=== PATIENT | female | born 1930 | race Caucasian/White ===

== ENCOUNTER → 2016-06-01 | Outpatient (CLI) | payer MEDICARE, OTHER ==
--- NOTE | 2016-06-01 13:02 | XR ---
EXAMINATION TYPE: XR chest 2V DATE OF EXAM: 06/01/2016 12:31 PM COMPARISON: 11/12/2010 INDICATION: Cough x2 weeks TECHNIQUE: Frontal and lateral views of the chest are obtained. FINDINGS: The heart size is normal. The pulmonary vasculature is normal. The lungs are clear. IMPRESSION: 1. No acute pulmonary process.
== END | disposition home or self-care (01) ==
LOC: RADXRMAIN 12:09
PROVIDERS: ATTEND Internal Medicine
DX: R05 Cough (principal)
CPT/HCPCS: 71020

== ENCOUNTER 2016-08-27 07:37 | Day surgery (SDC) | payer MEDICARE, OTHER ==
[2016-08-24 11:23] VITALS: BMI 28.6
[~2016-08-27 07:37] MED LIST: LACTATED RINGERS 1,000 ML IV SCH
[2016-08-27] MEDS ORDERED: LIDOCAINE 1% 20 ML VIAL (10MG/ML) FOR IV START INTRADERMA ONE (07:58)
[2016-08-27] MEDS ORDERED: LACTATED RINGERS 1,000 ML IV ONE (07:58)
[2016-08-27 08:14] VITALS: TEMP 98
[2016-08-27 08:14] LABS: Glucose,Whole Blood 121 mg/dL (75-99)
[2016-08-27] MEDS ORDERED: LIDOCAINE 1% INJ 10MG/ML (20 ML MDV) ONE (08:23)
[2016-08-27] MEDS ORDERED: PROPOFOL 10 MG/ML 20 ML VIAL IV ONE (08:23)
--- NOTE | 2016-08-27 08:35 | P.PCN ---
Date of Procedure: 08/27/16 Procedure(s) Performed: BRIEF HISTORY: Patient is a 86-year-old, pleasant, white female, scheduled for an upper endoscopy as a part of evaluation of persistent epigastric pain for the last 1 year duration. She does complain of some nausea but no emesis. She was treated with omeprazole 20 mg daily for several months with no relief in her symptoms. she denies any recent NSAID use. No prior history of peptic ulcer disease PROCEDURE PERFORMED: Esophagogastroduodenoscopy with biopsy. PREOPERATIVE DIAGNOSIS: Chronic epigastric pain. IV sedation per anesthesia. PROCEDURE: After informed consent was obtained, the patient was brought into the endoscopy unit. IV sedation was administered by Anesthesia under continuous monitoring. Initially the Olympus GIF-140 video endoscope was inserted into the mouth. Esophagus intubated without any difficulty. It was gradually advanced into the stomach and duodenum and carefully examined. The bulb and the second part of the duodenum appeared normal. Biopsies were done from this area to rule out celiac disease. The scope at this time was withdrawn to the stomach, adequately insufflated with air, and upon careful examination, mucosa of the antrum, had mild gastritis and biopsies were done from this area. The body, cardia and the fundus appeared normal. The scope was then withdrawn into the esophagus. Small sliding Hiatal hernia noted. The GE junction was located at 39 cm from the incisors. The esophagus appeared normal. Biopsies were also done from the distal esophagus. There were no erosions or ulcerations seen and the patient tolerated the procedure well. IMPRESSION: 1. Mild antral gastritis. 2. Small sliding-type hiatal hernia but no evidence of esophagitis or Leo' s esophagus RECOMMENDATIONS: The findings of this examination were discussed with the patient as well as her family. She was advised to follow with the biopsy results.
[2016-08-27 09:08] VITALS: BP 142/72; PULSE 70; RESP 18
== END 2016-08-27 09:33 | disposition home or self-care (01) ==
LOC: ORWHC2ENDO 07:37
PROVIDERS: ATTEND Internal Medicine Gastroenterology
DX: K21.0 Gastro-esophageal reflux disease with esophagitis (principal); K29.50 Unspecified chronic gastritis without bleeding; G89.29 Other chronic pain; K44.9 Diaphragmatic hernia without obstruction or gangrene; I10 Essential (primary) hypertension; E11.9 Type 2 diabetes mellitus without complications; J45.909 Unspecified asthma, uncomplicated; Z79.82 Long term (current) use of aspirin; Z79.899 Other long term (current) drug therapy; Z79.891 Long term (current) use of opiate analgesic; Z88.5 Allergy status to narcotic agent; Z79.84 Long term (current) use of oral hypoglycemic drugs; Z79.51 Long term (current) use of inhaled steroids
CPT/HCPCS: 88305; 88342; 43239; J2001; J2704

== ENCOUNTER → 2016-10-26 | Outpatient (CLI) | payer MEDICARE ==
--- NOTE | 2016-10-26 19:06 | XR ---
EXAMINATION TYPE: XR chest 2V DATE OF EXAM: 10/26/2016 COMPARISON: 06/01/2016 HISTORY: Cough and chest tightness TECHNIQUE: Frontal and lateral views of the chest are obtained. FINDINGS: There is mildly added peribronchial opacity in the left lower lobe, consistent with develo ping bronchopneumonia. There is no pleural effusion, or pneumothorax seen. The cardiac silhouette size is within normal mancuso its. The osseous structures are intact. IMPRESSION: FINDINGS SUGGEST LEFT LOWER LOBE BRONCHOPNEUMONIA.
== END | disposition home or self-care (01) ==
LOC: RADXRMAIN 15:28
PROVIDERS: ATTEND Internal Medicine
DX: R05 Cough (principal); R06.02 Shortness of breath
CPT/HCPCS: 71020

== ENCOUNTER → 2016-11-01 | Outpatient (CLI) | payer MEDICARE ==
--- NOTE | 2016-11-01 14:57 | BD ---
EXAMINATION TYPE: MG DEXA axial skeleton. DATE OF EXAM: 11/01/2016 COMPARISON: NONE CLINICAL HISTORY: M89.9 DISORDER OF BONE Height: 64.5 Weight: 191 FRAX RISK QUESTIONS: Alcohol (3 or more units per day): NO Family History (Parent hip fracture): YES Glucocorticoids (More than 3mos): YES (Ex: prednisone, prednisolone, methylprednisolone, dexamethasone, and hydrocortisone). History of Fracture in Adulthood: NO Secondary Osteoporosis: NO 1. Type 1 Diabetes: NO 2. Hyperthyroidism: NO 3. Menopause before 45: NO 4. Malnutrition: NO 5. Chronic liver disease: NO Rheumatoid Arthritis: NO Current Tobacco Use: NO RISK FACTORS HISTORY OF: Family History of Osteoporosis: YES, SISTER AND MOTHER...SISTER WITH BROKEN HIP Smoke tobacco: NO Drink Alcohol: NONE Active: NOT REALLY, USES CANE Diet low in dairy products/other sources of calcium: NO Postmenopausal woman: YES, IN HER 50'S Lost more than 2 inches in height since high school: YES Adrenal Insufficiency: NO MEDICATIONS: Prednisone or other steroids: PREDNISONE, ASTHMA INHALERS, AND COPD How Long: MANY YRS Thyroid Medications: YES, SYNTHROID How Long: OVER 10 YRS Additional Medications: BP MEDS, XANAX, DIABETIC MEDS, STATIN FOR CHOLESTEROL, VIT D Additional History: ASTHMA, COPD, DIABETIC, RT TOTAL KNEE, OSTEOARTHRITIS EXAM MEASUREMENTS: Bone mineral densitometry was performed using the [employer] System. Bone mineral density as measured about the Lumbar spine is: ----- L1-L4(G/cm2): 1.287 T Score Values are as follows: ----- L1: 0.9 ----- L2: 0.6 ----- L3: 0.8 ----- L4: 1.0 ----- L1-L4: 0.9 Bone mineral density THIS IS HER FIRST BONE DENSITY EXAM.......BASELINE Bone mineral density about the R hip (g/cm2): 0.932 Bone mineral density about the L hip (g/cm2): 0.818 T Score values are as follows: -----R Neck: -0.9 -----L Neck: -2.0 -----R Total: -0.6 -----L Total: -1.5 Bone mineral density THIS IS HER BASELINE STUDY FOR BONE DENSITY FRAX %'S: THERE IS A 40.6% CHANCE OF A MAJOR OSTEOPOROTIC FX AND A 28.9% CHANCE FOR A HIP FX......P ROBABILITY OF A FX IN 10 YRS TIME IMPRESSION: Osteopenia (T Score between -2.5 and -1 as noted by T score values in the left hip. There is slightly increased risk of fracture and the patient may be considered for treatment. Re-Screen 2-5 years NOTE: T-SCORE=SD OF THE YOUNG ADULT MEAN.
== END | disposition home or self-care (01) ==
LOC: RADBDWWP 13:21
PROVIDERS: ATTEND Internal Medicine
DX: M85.80 Other specified disorders of bone density and structure, unspecified site (principal)
CPT/HCPCS: 77080

== ENCOUNTER → 2017-10-31 | Outpatient (CLI) | payer MEDICARE ==
--- NOTE | 2017-10-31 12:50 | XR ---
EXAMINATION TYPE: XR chest 2V DATE OF EXAM: 10/31/2017 COMPARISON: Chest x-ray October 26, 2016 HISTORY: Cough rule out pneumonia. TECHNIQUE: Frontal and lateral views of the chest are obtained. FINDINGS: There is chronic parenchymal change without suspicious new focal air space opacity, pleura l effusion, or pneumothorax seen. There is persistent biapical and left basilar scarring. The cardia c silhouette size is stable and mildly enlarged with atherosclerotic and ectatic aorta. There is mild to moderate multilevel spurring and disc space narrowing in the thoracic spine. IMPRESSION: Chronic changes and cardiomegaly without acute pulmonary process.
== END | disposition home or self-care (01) ==
LOC: RADXRMAIN 12:28
PROVIDERS: ATTEND Internal Medicine
DX: I51.7 Cardiomegaly (principal); J98.4 Other disorders of lung
CPT/HCPCS: 71046

== ENCOUNTER → 2018-01-19 | Outpatient (CLI) | payer MEDICARE ==
--- NOTE | 2018-01-19 11:51 | US ---
EXAMINATION TYPE: US liver DATE OF EXAM: 01/19/2018 COMPARISON: NONE CLINICAL HISTORY: Abn liver function test R94.5. EXAM MEASUREMENTS: Liver Length: 16.9 cm . Normal less than 15.5 cm. Gallbladder Wall: Surgically absent cm CBD: 0.3 cm Right Kidney: 9.4x4.3x4.7 cm Pancreas: 0.3 cm prominent duct. Liver: Increased attenuation, decreased visualization of vessels suggestive of fatty infiltrate Gallbladder: Surgically absent Evidence for sonographic Tripathi's sign: No CBD: wnl Right Kidney: wnl IMPRESSION: 1. Prominence of the pancreatic duct. Consider additional evaluation with ERCP. 2. Mild fatty infiltration of the enlarged liver.
== END | disposition home or self-care (01) ==
LOC: RADUSWWP 10:18
PROVIDERS: ATTEND Internal Medicine
DX: K76.0 Fatty (change of) liver, not elsewhere classified (principal)
CPT/HCPCS: 76705

== ENCOUNTER → 2018-01-30 | Outpatient (CLI) | payer MEDICARE ==
[2018-01-30 14:43] LABS: Albumin 4.5 g/dL (3.5-5.0); Calcium 9.7 mg/dL (8.4-10.2); Potassium 5.4 mmol/L (3.5-5.1); Total Protein 7.5 g/dL (6.3-8.2)
[2018-01-30 20:40] LABS: Iron Saturation 91.94 (12.00-45.00); Protein, Total 7.2 g/dL (6.2-8.2)
[2018-01-31 10:42] LABS: Ceruloplasmin 23.7 mg/dL (20.0-60.0)
[2018-01-31 13:48] LABS: Albumin 4.52 g/dL (3.80-4.90); Gamma Globulin 0.94 g/dL (0.70-1.50)
== END | disposition home or self-care (01) ==
LOC: LABWHC1 13:32
PROVIDERS: ATTEND Internal Medicine Gastroenterology
DX: E83.110 Hereditary hemochromatosis (principal); R94.5 Abnormal results of liver function studies
CPT/HCPCS: 36415; 80053; 82103; 82390; 82728; 83516; 83540; 83550; 84165; 86038

== ENCOUNTER → 2018-05-30 | Outpatient (CLI) | payer MEDICARE ==
[2018-05-30 15:04] LABS: Basophils # (A) 0.1 k/uL (0-0.2); Basophils % (A) 1 %; Eosinophils # (A) 0.4 k/uL (0-0.7); Eosinophils % (A) 5 %; HCT 39.2 % (34.0-46.0); HGB 13.9 gm/dL (11.4-16.0); Lymphocytes # (A) 2.5 k/uL (1.0-4.8); Lymphocytes % (A) 30 %; MCH 33.5 pg (25.0-35.0); MCHC 35.3 g/dL (31.0-37.0); MCV 94.8 fL (80.0-100.0); Mean Platelet Volume 6.7; Monocytes # (A) 0.4 k/uL (0-1.0); Monocytes % (A) 5 %; Neutrophils # (A) 4.5 k/uL (1.3-7.7); Neutrophils % (A) 56 %; Platelet Count 168 k/uL (150-450); RBC 4.14 m/uL (3.80-5.40); RDW 12.7 % (11.5-15.5); WBC 8.2 k/uL (3.8-10.6)
[2018-05-30 15:05] LABS: ALT 38 U/L (9-52); AST 31 U/L (14-36); Albumin 4.6 g/dL (3.5-5.0); Albumin/Globulin Ratio 1.5; Alkaline Phosphatase 55 U/L (38-126); Anion Gap 11 mmol/L; Blood Urea Nitrogen 17 mg/dL (7-17); Calcium 9.8 mg/dL (8.4-10.2); Carbon Dioxide 26 mmol/L (22-30); Chloride 104 mmol/L (98-107); Glucose 88 mg/dL (74-99); Potassium 4.4 mmol/L (3.5-5.1); Sodium 141 mmol/L (137-145); Total Bilirubin 0.6 mg/dL (0.2-1.3); Total Protein 7.6 g/dL (6.3-8.2)
[2018-05-30 19:06] LABS: Iron Saturation 29.53 (12.00-45.00)
== END | disposition home or self-care (01) ==
LOC: LABWHC1 14:23
PROVIDERS: ATTEND Internal Medicine Gastroenterology
DX: E83.10 Disorder of iron metabolism, unspecified (principal)
CPT/HCPCS: 36415; 80053; 82728; 83540; 83550; 85025

== ENCOUNTER → 2018-07-24 | Outpatient (CLI) | payer MEDICARE ==
--- NOTE | 2018-07-24 15:00 | MR ---
EXAMINATION TYPE: MR knee LT wo con DATE OF EXAM: 07/24/2018 COMPARISON: Outside left knee x-ray June 13, 2018 HISTORY: Left knee pain per order. Pain for 3 months per patient. TECHNIQUE: Multiplanar, multisequence images of the knee is performed without IV contrast. FINDINGS: MEDIAL MENISCUS: Anterior horn is intact without tear. Posterior horn shows horizontal and oblique in creased signal with truncation and signal extending to superior and inferior articular surfaces. Medi al extrusion medial meniscus is noted on coronal images. LATERAL MENISCUS: Anterior horn shows horizontal increased signal. Posterior horn shows oblique incre ased signal. Neither extends to articular surface.. CRUCIATE LIGAMENTS: The anterior and posterior cruciate ligaments are intact and unremarkable. COLLATERAL LIGAMENTS: The medial collateral ligament and lateral collateral ligament complex are inta ct and unremarkable. EXTENSOR MECHANISM: Visualized quadriceps and patellar tendons are intact. EFFUSION: There is small patellar joint effusion. POPLITEAL CYST: There is moderate to large size multiseptated popliteal/rivera cyst measuring 7.8 cm l immanuel axis sagittal image 23. TRICOMPARTMENT SPACES: Moderate to advanced narrowing most prominent inferior patellofemoral compartm ent is present. There is mild spurring at this level. There is mild spurring and narrowing medial tib iofemoral compartment. CARTILAGE: Chondromalacia patella is present with full-thickness cartilaginous loss along the posteri or medial aspect of the inferior patellar pole. There is thinning of articular cartilage medial tibio femoral compartment without full-thickness loss. BONE MARROW SIGNAL: No focal abnormal marrow signal is appreciated. OTHER: No additional significant abnormality is appreciated. IMPRESSION: 1. Fairly advanced patellofemoral joint osteoarthropathy as detailed above. 2. Full-thickness tear posterior horn of medial meniscus. 3. Intrasubstance tears anterior and posterior horns of lateral meniscus. 4. Moderate to large size popliteal cyst.
== END ==
LOC: RADMRIMAIN 09:51
PROVIDERS: ATTEND Orthopaedic Surgery
DX: M17.12 Unilateral primary osteoarthritis, left knee (principal); S83.242A Other tear of medial meniscus, current injury, left knee, initial encounter; S83.282A Other tear of lateral meniscus, current injury, left knee, initial encounter; M71.22 Synovial cyst of popliteal space [Baker], left knee

== ENCOUNTER 2018-08-24 13:09 | Day surgery (SDC) | payer MEDICARE ==
[2018-08-22 10:58] VITALS: BMI 30.5
--- NOTE | 2018-08-23 21:42 | HP ---
HISTORY AND PHYSICAL REASON FOR ADMISSION: Surgery is scheduled for 08/24/2018 HISTORY OF PRESENT ILLNESS: Ivanna Hummel is an 88-year-old patient seen with progressive left knee pain. Treatment options discussed. She elected to proceed with arthroscopy. Consent was obtained. Medical clearance provided Dr. Dixon. Cardiac clearance by Dr. San. PAST MEDICAL HISTORY: Hypertension, hyperlipidemia, hypothyroidism, [id number] diabetes. PAST SURGICAL HISTORY: Right total knee arthroplasty. MEDICATIONS: Atenolol, gabapentin, lisinopril, Synthroid. ALLERGIES: PENICILLIN, CODEINE. SOCIAL HISTORY: She denies tobacco use. PHYSICAL EXAMINATION: Evaluation of the left knee range of motion is negative 2 to 120 degrees. There is a mild effusion present. She is tender along the medial and lateral joint lines. There is positive medial Reena's. Ligaments stable. Hip rotation without pain. Distal neurovascular exam intact. RADIOGRAPHS: Left knee radiographs revealed moderate osteoarthritic changes. MRI of left knee revealed medial and lateral meniscal tears. IMPRESSION: Internal derangement, left knee with medial lateral meniscal tears. PLAN: Left knee arthroscopy with partial meniscectomy and debridement. Surgery scheduled for 08/24/2018. MMODL / IJN: [id number] /
[~2018-08-24 13:09] MED LIST changes: +DEXAMETHASONE SOD PHOSPHATE 10 MG/ML 1 ML VIAL IV ONE; +LIDOCAINE 1% 20 ML VIAL (10MG/ML) FOR IV START INTRADERMA PRN; +MIDAZOLAM (PF) 2 MG/2 ML VIAL IV PRN; +ONDANSETRON 4 MG/2 ML VIAL IVP ONE; +ceFAZolin IN SWFI 2 GM/20 ML SYRINGE IVP ONE
[2018-08-24 13:53] VITALS: RESP 16
[2018-08-24 13:57] LABS: Glucose,Whole Blood 120 mg/dL (75-99)
[2018-08-24 14:09] LABS: HCT 40.9 % (34.0-46.0); HGB 14.4 gm/dL (11.4-16.0); Hyperchromasia Slight; MCH 32.7 pg (25.0-35.0); MCHC 35.3 g/dL (31.0-37.0); MCV 92.8 fL (80.0-100.0); Mean Platelet Volume 7.1; Platelet Count 209 k/uL (150-450); RDW 14.2 % (11.5-15.5); WBC 10.9 k/uL (3.8-10.6)
[2018-08-24] MEDS ORDERED: PROPOFOL 10 MG/ML 20 ML VIAL IV ONE (15:21)
[2018-08-24] MEDS ORDERED: MIDAZOLAM 2 MG/2 ML VIAL ONE (15:21)
[2018-08-24] MEDS ORDERED: LIDOCAINE 1% INJ 10MG/ML (20 ML MDV) ONE (15:21)
[2018-08-24] MEDS ORDERED: fentaNYL (PF) 50 MCG/ML 2 ML AMP ONE (15:21)
[2018-08-24] MEDS ORDERED: BUPIVACAINE (PF) 0.5% 30 ML VIAL INTRAARTIC ONE (15:44)
[2018-08-24] MEDS ORDERED: LACTATED RINGERS 1,000 ML IV ONE (16:10)
--- NOTE | 2018-08-24 16:22 | P.OP ---
Date of Procedure: 08/24/18 Preoperative Diagnosis: Internal derangement left knee Postoperative Diagnosis: 1. Tear lateral meniscus left knee 2. Grade 3 chondromalacia medial femoral condyle left knee 3. 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 Grade 3 chondromalacia lateral femoral condyle left knee 5. Reactive synovitis medial, lateral and suprapatellar compartments left knee Procedure(s) Performed: 1. Arthroscopic partial lateral meniscectomy left knee 2. Arthroscopic chondroplasty medial femoral condyle, lateral femoral condyle and patellofemoral joint left knee 3. Arthroscopic partial synovectomy medial, lateral and suprapatellar compartments left knee Anesthesia: GETA, local Surgeon: Richard Marcum Estimated Blood Loss (ml): 8 Pathology: none sent Condition: stable Disposition: PACU Indications for Procedure: 88-year-old patient seen with progressive left knee pain. After treatment options were discussed with her, she elected to proceed with arthroscopy. Operative Findings: See description of procedure Description of Procedure: Patient was taken to the operative suite. Patient underwent a general anesthetic by the department of anesthesia. Patient was given preoperative antibiotics. The left lower extremity was placed in a well-padded arthroscopic leg fernandez. The left leg was prepped and draped in the normal sterile orthopedic fashion. A lateral parapatellar and suprapatellar incision was made. Trochars were inserted. Arthroscopy was initiated. Suprapatellar pouch field diffuse thick reactive synovitis. The patellofemoral joint appeared to articulate congruently. There was grade 3/4 chondromalacia of the patellofemoral joint with some diffuse osteochondral tears present. The scope was guided into the medial gutter. No loose bodies or plica were identified The scope was then guided into the medial compartment. A medial parapatellar incision was made. Trocar inserted followed by probe. There was some fraying posterior horn meniscus. There were grade 3 chondromalacia changes of the medial femoral condyle with osteochondral flap tears present. There was thick reactive synovitis anteriorly. I debrided the superficial fraying with motorize shaver. I performed a chondroplasty of the medial femoral condyle down to stable tissue. I performed a partial synovectomy decompressing the thick reactive synovitis. The residual osteochondral surface was stable. There was good decompression of synovitis. Scope and probe were then guided into the intercondylar notch. Cruciates were identified, probed and found to be stable. The scope and probe were then guided into lateral compartment. There was a complex tear posterior horn lateral meniscus. There were grade 3 chondromalacia changes lateral femoral condyle with some osteochondral flap tears present. There was reactive synovitis anteriorly. I performed a partial lateral meniscectomy down to stable tissue. I performed a chondroplasty of the lateral femoral condyle down stable tissue. I performed a partial synovectomy. The residual meniscus was stable. The residual osteochondral surface was stable. There was good decompression of synovitis. The scope was in guided back into the suprapatellar compartment. I introduced the motorized shaver into the super compartment. I debrided some piecemeal fragments of meniscus I encountered. I performed a partial synovectomy decompressing the reactive synovitis. I performed a chondroplasty of the patellofemoral joint stable tissue. The residual osteochondral surface was stable. There was good decompression of synovitis. Shaver was removed. I took one more look on the entire knee, no residual debris. Instruments were now removed from the joint. The joint was infiltrated with 0.5% Marcaine. Steri-Strips were applied to the portal sites. Sterile dressings were applied. The patient was placed into a JIGNA hose. No tourniquet was utilized. The patient was awakened, transferred to a bed and taken to recovery stable satisfactory condition.
[2018-08-24 16:29] VITALS: TEMP 97.6
[2018-08-24] MEDS: fentaNYL (PF) 50 MCG/ML 2 ML AMP IV PRN ×2 (17:09→17:21)
[2018-08-24 17:59] VITALS: BP 128/62; PULSE 68
== END 2018-08-24 18:50 | disposition home or self-care (01) ==
LOC: OR 13:09
PROVIDERS: ATTEND Orthopaedic Surgery
DX: S83.272A Complex tear of lateral meniscus, current injury, left knee, initial encounter (principal); M65.88 Other synovitis and tenosynovitis, other site; M94.262 Chondromalacia, left knee; I10 Essential (primary) hypertension; J45.909 Unspecified asthma, uncomplicated; E11.40 Type 2 diabetes mellitus with diabetic neuropathy, unspecified; F41.9 Anxiety disorder, unspecified; E03.9 Hypothyroidism, unspecified; E78.2 Mixed hyperlipidemia; Z86.73 Personal history of transient ischemic attack (TIA), and cerebral infarction without residual deficits; Z87.891 Personal history of nicotine dependence; Z79.890 Hormone replacement therapy; Z79.51 Long term (current) use of inhaled steroids; Z79.82 Long term (current) use of aspirin; Z79.891 Long term (current) use of opiate analgesic; Z79.899 Other long term (current) drug therapy; Z88.5 Allergy status to narcotic agent; Z88.0 Allergy status to penicillin; Z91.048 Other nonmedicinal substance allergy status
CPT/HCPCS: 85027; 29880; J2250 ×2; J1100; J2405; J2001; J3010; J2704; J0690

== ENCOUNTER → 2019-02-08 | Outpatient (CLI) | payer MEDICARE ==
[~2019-02-08] MED LIST changes: -DEXAMETHASONE SOD PHOSPHATE 10 MG/ML 1 ML VIAL IV ONE; -LACTATED RINGERS 1,000 ML IV SCH; -LIDOCAINE 1% 20 ML VIAL (10MG/ML) FOR IV START INTRADERMA PRN; -MIDAZOLAM (PF) 2 MG/2 ML VIAL IV PRN; -ONDANSETRON 4 MG/2 ML VIAL IVP ONE; +SODIUM CHLORIDE 0.9% 500 ML 500 ML in EMPTY BAG 1 BAG IV PRN; -ceFAZolin IN SWFI 2 GM/20 ML SYRINGE IVP ONE
[2019-02-08 13:16] VITALS: BP 129/74; PULSE 85; RESP 18; TEMP 98.3
[2019-02-08 13:38] LABS: HCT 40.7 % (34.0-46.0); HGB 14.6 gm/dL (11.4-16.0); MCH 33.5 pg (25.0-35.0); MCHC 35.8 g/dL (31.0-37.0); MCV 93.3 fL (80.0-100.0); Platelet Count 186 k/uL (150-450); RBC 4.36 m/uL (3.80-5.40); RDW 12.9 % (11.5-15.5); WBC 9.4 k/uL (3.8-10.6)
[2019-02-09 08:57] LABS: Albumin 4.4 g/dL (3.5-5.0); Calcium 9.9 mg/dL (8.4-10.2); Potassium 4.8 mmol/L (3.5-5.1); Total Bilirubin 0.9 mg/dL (0.2-1.3); Total Protein 7.9 g/dL (6.3-8.2)
== END | disposition home or self-care (01) ==
LOC: PROCWHC3 13:01
PROVIDERS: ATTEND Internal Medicine Gastroenterology
DX: E83.110 Hereditary hemochromatosis (principal)
CPT/HCPCS: 36415; 80053; 82728; 85027; 99195

== ENCOUNTER → 2019-11-05 | Outpatient (CLI) | payer MEDICARE ==
[2019-11-05 12:11] LABS: Basophils # (A) 0.1 k/uL (0-0.2); Basophils % (A) 1 %; Eosinophils # (A) 0.3 k/uL (0-0.7); Eosinophils % (A) 5 %; HCT 42.3 % (34.0-46.0); HGB 14.1 gm/dL (11.4-16.0); Lymphocytes # (A) 2.1 k/uL (1.0-4.8); Lymphocytes % (A) 31 %; MCH 31.8 pg (25.0-35.0); MCHC 33.2 g/dL (31.0-37.0); MCV 95.6 fL (80.0-100.0); Mean Platelet Volume 7.2; Monocytes # (A) 0.4 k/uL (0-1.0); Monocytes % (A) 5 %; Neutrophils # (A) 3.8 k/uL (1.3-7.7); Neutrophils % (A) 56 %; Platelet Count 162 k/uL (150-450); RBC 4.43 m/uL (3.80-5.40); WBC 6.9 k/uL (3.8-10.6)
[2019-11-05 12:16] VITALS: RESP 18; TEMP 98.5
[2019-11-05 13:15] VITALS: BP 114/70; PULSE 81
[2019-11-06 02:54] LABS: Ferritin 56.9 ng/mL (10.0-291.0)
[2019-11-06 04:06] LABS: % Iron Saturation 35.56 (12.00-45.00)
== END | disposition home or self-care (01) ==
LOC: PROCWHC3 11:32
PROVIDERS: ATTEND Internal Medicine Gastroenterology
DX: E83.110 Hereditary hemochromatosis (principal)
CPT/HCPCS: 36415; 82728; 83540; 83550; 85025; 99195

== ENCOUNTER → 2020-05-23 | Outpatient (CLI) | payer MEDICARE ==
[2020-05-23 11:35] VITALS: PULSE 69; RESP 16; TEMP 98.5
[2020-05-23 12:16] LABS: Basophils % (A) 1 %; Eosinophils # (A) 0.3 k/uL (0-0.7); Eosinophils % (A) 3 %; HCT 41.1 % (34.0-46.0); HGB 14.4 gm/dL (11.4-16.0); Lymphocytes # (A) 2.5 k/uL (1.0-4.8); Lymphocytes % (A) 32 %; MCH 32.7 pg (25.0-35.0); MCV 93.4 fL (80.0-100.0); Mean Platelet Volume 7.6; Monocytes # (A) 0.5 k/uL (0-1.0); Monocytes % (A) 6 %; Neutrophils # (A) 4.4 k/uL (1.3-7.7); Neutrophils % (A) 57 %; Platelet Count 139 k/uL (150-450); RBC 4.39 m/uL (3.80-5.40); RDW 12.6 % (11.5-15.5); WBC 7.8 k/uL (3.8-10.6)
[2020-05-23 12:54] VITALS: BP 127/84
[2020-05-23 20:20] LABS: % Iron Saturation 29.14 (12.00-45.00)
[2020-05-23 20:27] LABS: Ferritin 39.7 ng/mL (10.0-291.0)
== END | disposition home or self-care (01) ==
LOC: PROCWHC3 11:13
PROVIDERS: ATTEND Internal Medicine Gastroenterology
DX: E83.110 Hereditary hemochromatosis (principal)
CPT/HCPCS: 36415; 82728; 83540; 83550; 85025; 99195

== ENCOUNTER → 2020-06-09 | Outpatient (CLI) | payer MEDICARE ==
--- NOTE | 2020-06-10 08:25 | XR ---
EXAMINATION TYPE: XR chest 2V DATE OF EXAM: 06/09/2020 COMPARISON: 11/07/2018 HISTORY: 89-year-old female with cough TECHNIQUE: Frontal and lateral views FINDINGS: Heart borderline enlarged. Hyperinflation. Biapical pleural-parenchymal scarring. Atherosclerotic arc h calcifications. Continued patchy left basilar opacity, slightly worsened in the interval. IMPRESSION: Heart size and COPD. Patchy infiltrate at the left base slightly worsened in the interval.
== END | disposition home or self-care (01) ==
LOC: RAD 17:01
PROVIDERS: ATTEND Internal Medicine
DX: J44.9 Chronic obstructive pulmonary disease, unspecified (principal); R91.8 Other nonspecific abnormal finding of lung field
CPT/HCPCS: 71046

== ENCOUNTER 2020-07-01 18:36 | Emergency (ER) | payer MEDICARE ==
[2020-07-01 18:41] VITALS: BP 144/76; TEMP 98.6
[2020-07-01] MEDS ORDERED: IPRATROPIUM 0.5 MG/2.5 ML NEBU INHALATION STA (19:01)
[2020-07-01] MEDS ORDERED: methylPREDNISolone SOD SUCCI 125 MG/2 ML VIAL IV STA (19:01)
[2020-07-01] MEDS ORDERED: ALBUTEROL NEBULIZED 2.5 MG/3 ML INHALATION STA (19:01)
--- NOTE | 2020-07-01 19:03 | ED ---
General Adult HPI - General Chief complaint: Shortness of Breath Stated complaint: SOB/Cough Time Seen by Provider: 07/01/20 18:42 Source: patient, RN notes reviewed, old records reviewed Mode of arrival: ambulatory Limitations: no limitations - History of Present Illness Initial comments: 89-year-old female history COPD, recent diagnosis of pneumonia presented for evaluation of cough and dyspnea. Patient states cough is nonproductive. She states that she was on antibiotics and steroids approximately one week ago. She denies fever. She reports some central chest tightness but no chest pain. No lower extremity pain or swelling. She was sent in for evaluation by her primary care physician. - Related Data Home Medications Medication Instructions Recorded Confirmed ALPRAZolam [Xanax] 0.25 mg PO DAILY PRN 08/24/16 05/23/20 Albuterol Inhaler (Mhu) [Ventolin 2 puff INHALATION RT-QID PRN 08/24/16 05/23/20 Hfa Inhaler] Fluticasone/Salmeterol [Advair 1 puff INHALATION RT-BID PRN 08/24/16 05/23/20 250-50 Diskus] Gabapentin 600 mg PO TID 08/24/16 05/23/20 Levothyroxine Sodium [Synthroid] 175 mcg PO DAILY 08/24/16 05/23/20 atenoloL [Tenormin] 25 mg PO DAILY 08/24/16 05/23/20 lisinopriL [Zestril] 20 mg PO DAILY 08/24/16 05/23/20 traMADol HCL [Ultram] 100 mg PO TID 08/24/16 05/23/20 Cholecalciferol [Vitamin D3] 1,000 unit PO DAILY 03/08/18 05/23/20 Vitamin B(Dose Unknown) 1 tab PO DAILY 08/22/18 05/23/20 Vitamin C(Dose Unknown) 1 tab PO DAILY 08/22/18 05/23/20 Aspirin EC [Ecotrin Low Dose] 81 mg PO DAILY 11/07/18 05/23/20 Sucralfate [Carafate] 1 gm PO ACHS 02/08/19 05/23/20 Pantoprazole [Protonix] 40 mg PO DAILY 05/23/20 05/23/20 Previous Rx's Medication Instructions Recorded Azithromycin [Zithromax Z-pack] 0 mg PO DIRECTED #6 tab 07/01/20 predniSONE 50 mg PO DAILY #5 tab 07/01/20 Allergies Allergy/AdvReac Type Severity Reaction Status Date / Time codeine Allergy Nausea & Verified 05/23/20 11:22 Vomiting, hallucination Iodinated Contrast Media Allergy Rash/Hives Verified 07/01/20 18:43 iodine Allergy Rash/Hives/throat Verified 05/23/20 11:22 closed up Penicillins Allergy Rash/Hives Verified 05/23/20 11:22 Review of Systems ROS Statement: Those systems with pertinent positive or pertinent negative responses have been documented in the HPI. ROS Other: All systems not noted in ROS Statement are negative. 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", abdominal pain, urinary leakage, History of Any Multi-Drug Resistant Organisms: None Reported Past Surgical History: Cholecystectomy, Heart Catheterization, Hysterectomy, Orthopedic Surgery, Tonsillectomy Additional Past Surgical History / Comment(s): thyroidectomy, rt knee replacement, dalila cataracts, Left knee arthroscopy Past Anesthesia/Blood Transfusion Reactions: Motion Sickness Past Psychological History: Anxiety Smoking Status: Never smoker Past Alcohol Use History: None Reported Past Drug Use History: None Reported - Past Family History Sister(s) Family Medical History: Cancer Mother Family Medical History: Cancer Brother(s) Family Medical History: Cancer General Exam Limitations: no limitations General appearance: alert, in no apparent distress Head exam: Present: atraumatic, normocephalic Eye exam: Present: normal appearance, PERRL ENT exam: Present: normal exam Neck exam: Present: normal inspection. Absent: tenderness, meningismus Respiratory exam: Present: wheezes, rhonchi, decreased breath sounds. Absent: respiratory distress Cardiovascular Exam: Present: regular rate, normal rhythm GI/Abdominal exam: Present: soft. Absent: distended, tenderness, guarding Extremities exam: Present: normal inspection, normal capillary refill. Absent: pedal edema, calf tenderness Back exam: Present: normal inspection Neurological exam: Present: alert, oriented X3, CN II-XII intact. Absent: motor sensory deficit Psychiatric exam: Present: normal affect, normal mood Skin exam: Present: warm, dry, intact. Absent: cyanosis, diaphoretic Course Vital Signs 07/01/20 07/01/20 07/01/20 18:38 19:23 19:51 Temperature 98.6 F Pulse Rate 89 88 Respiratory 16 20 Rate Blood Pressure 144/76 O2 Sat by Pulse 96 Oximetry 07/01/20 19:58 Temperature Pulse Rate 90 Respiratory Rate Blood Pressure O2 Sat by Pulse Oximetry EKG Findings - EKG Comments: EKG Findings:: EKG: Normal sinus rhythm, LVH, rate of 89, no ST segment elevation, there is T-wave inversion in lead 3, VT interval 208, QRS duration 84, QTC 450 Medical Decision Making - Medical Decision Making 89-year-old female with chief complaint of cough and dyspnea. History of COPD. Workup reveals EKG showing sinus rhythm, chest x-ray showing pulmonary fibrosis, no acute findings, no focal pneumonia. Patient has normal CBC, no leukocytosis, normal CMP, negative troponin, negative BNP. Minimal lactic acid of 2.2 which is treated with IV fluids. She's given albuterol, Atrovent, steroids in the emergency department. On reevaluation she is feeling better. I did discuss case with Dr. Dixon who is familiar with the patient. Patient prefers to be discharged home. She will be prescribed steroid and antibiotic for COPD exacerbation. She will use her inhalers and nebulizer at home. - Lab Data Result diagrams: 07/01/20 19:23 07/01/20 19:23 Lab Results 07/01/20 07/01/20 07/01/20 Range/Units 19:23 19:23 19:23 WBC 6.4 (3.8-10.6) k/uL RBC 4.03 (3.80-5.40) m/uL Hgb 12.9 (11.4-16.0) gm/dL Hct 37.2 (34.0-46.0) % MCV 92.1 (80.0-100.0) fL MCH 31.9 (25.0-35.0) pg MCHC 34.7 (31.0-37.0) g/dL RDW 12.7 (11.5-15.5) % Plt Count 132 L (150-450) k/uL MPV 6.9 Neutrophils % 48 % Lymphocytes % 33 % Monocytes % 5 % Eosinophils % 10 % Basophils % 1 % Neutrophils # 3.0 (1.3-7.7) k/uL Lymphocytes # 2.1 (1.0-4.8) k/uL Monocytes # 0.3 (0-1.0) k/uL Eosinophils # 0.6 (0-0.7) k/uL Basophils # 0.1 (0-0.2) k/uL PT 10.4 (9.0-12.0) sec INR 1.0 (<1.2) APTT 24.3 (22.0-30.0) sec Sodium 137 (137-145) mmol/L Potassium 4.5 (3.5-5.1) mmol/L Chloride 102 (98-107) mmol/L Carbon Dioxide 25 (22-30) mmol/L Anion Gap 10 mmol/L BUN 20 H (7-17) mg/dL Creatinine 0.78 (0.52-1.04) mg/dL Est GFR (CKD-EPI)AfAm 79 (>60 ml/min/1.73 sqM) Est GFR (CKD-EPI)NonAf 68 (>60 ml/min/1.73 sqM) Glucose 137 H (74-99) mg/dL Plasma Lactic Acid Jose M (0.7-2.0) mmol/L Calcium 9.4 (8.4-10.2) mg/dL Total Bilirubin 0.5 (0.2-1.3) mg/dL AST 31 (14-36) U/L ALT 30 (4-34) U/L Alkaline Phosphatase 51 (38-126) U/L Troponin I (0.000-0.034) ng/mL NT-Pro-B Natriuret Pep pg/mL Total Protein 7.3 (6.3-8.2) g/dL Albumin 4.4 (3.5-5.0) g/dL 07/01/20 07/01/20 07/01/20 Range/Units 19:23 19:23 19:23 WBC (3.8-10.6) k/uL RBC (3.80-5.40) m/uL Hgb (11.4-16.0) gm/dL Hct (34.0-46.0) % MCV (80.0-100.0) fL MCH (25.0-35.0) pg MCHC (31.0-37.0) g/dL RDW (11.5-15.5) % Plt Count (150-450) k/uL MPV Neutrophils % % Lymphocytes % % Monocytes % % Eosinophils % % Basophils % % Neutrophils # (1.3-7.7) k/uL Lymphocytes # (1.0-4.8) k/uL Monocytes # (0-1.0) k/uL Eosinophils # (0-0.7) k/uL Basophils # (0-0.2) k/uL PT (9.0-12.0) sec INR (<1.2) APTT (22.0-30.0) sec Sodium (137-145) mmol/L Potassium (3.5-5.1) mmol/L Chloride (98-107) mmol/L Carbon Dioxide (22-30) mmol/L Anion Gap mmol/L BUN (7-17) mg/dL Creatinine (0.52-1.04) mg/dL Est GFR (CKD-EPI)AfAm (>60 ml/min/1.73 sqM) Est GFR (CKD-EPI)NonAf (>60 ml/min/1.73 sqM) Glucose (74-99) mg/dL Plasma Lactic Acid Jose M 2.2 H* (0.7-2.0) mmol/L Calcium (8.4-10.2) mg/dL Total Bilirubin (0.2-1.3) mg/dL AST (14-36) U/L ALT (4-34) U/L Alkaline Phosphatase (38-126) U/L Troponin I <0.012 (0.000-0.034) ng/mL NT-Pro-B Natriuret Pep 177 pg/mL Total Protein (6.3-8.2) g/dL Albumin (3.5-5.0) g/dL Disposition Clinical Impression: Acute exacerbation of chronic obstructive pulmonary disease Disposition: HOME SELF-CARE Condition: Good Instructions (If sedation given, give patient instructions): COPD (Chronic Obstructive Pulmonary Disease) (ED) Prescriptions: predniSONE 50 mg PO DAILY #5 tab Azithromycin [Zithromax Z-pack] 0 mg PO DIRECTED #6 tab Is patient prescribed a controlled substance at d/c from ED?: No Referrals: Bri Dixon MD [Primary Care Provider] - 1-2 days Time of Disposition: 20:28
--- NOTE | 2020-07-01 19:16 | XR ---
EXAMINATION TYPE: XR chest 2V DATE OF EXAM: 07/01/2020 COMPARISON: 06/09/2020 HISTORY: Cough. Difficulty breathing. TECHNIQUE: FINDINGS: There is some linear density at the left lung base. There is mild coarsening of interstitia l markings. There is no heart failure. There are no hilar masses. Thoracic aorta is atheromatous. IMPRESSION: Mild pleural reaction and atelectasis left lung base without change. No heart failure. Mi ld pulmonary fibrotic changes.
[2020-07-01 19:28] VITALS: RESP 20
[2020-07-01 19:37] LABS: Basophils # (A) 0.1 k/uL (0-0.2); Basophils % (A) 1 %; Eosinophils # (A) 0.6 k/uL (0-0.7); Eosinophils % (A) 10 %; HCT 37.2 % (34.0-46.0); HGB 12.9 gm/dL (11.4-16.0); Lymphocytes # (A) 2.1 k/uL (1.0-4.8); Lymphocytes % (A) 33 %; MCH 31.9 pg (25.0-35.0); MCHC 34.7 g/dL (31.0-37.0); MCV 92.1 fL (80.0-100.0); Mean Platelet Volume 6.9; Monocytes # (A) 0.3 k/uL (0-1.0); Monocytes % (A) 5 %; Neutrophils % (A) 48 %; Platelet Count 132 k/uL (150-450); RBC 4.03 m/uL (3.80-5.40); RDW 12.7 % (11.5-15.5); WBC 6.4 k/uL (3.8-10.6)
[2020-07-01 19:46] LABS: Albumin 4.4 g/dL (3.5-5.0); Calcium 9.4 mg/dL (8.4-10.2); Potassium 4.5 mmol/L (3.5-5.1); Total Bilirubin 0.5 mg/dL (0.2-1.3); Total Protein 7.3 g/dL (6.3-8.2)
[2020-07-01 19:58] VITALS: PULSE 90
[2020-07-01] MEDS ORDERED: SODIUM CHLORIDE 0.9% 500 ML 500 ML IV ONE (20:04)
[2020-07-01 20:11] LABS: Partial Thromboplastin Time 24.3 sec (22.0-30.0); Prothrombin Time 10.4 sec (9.0-12.0)
== END 2020-07-01 20:36 | disposition home or self-care (01) ==
LOC: EC 18:36
DX: J44.1 Chronic obstructive pulmonary disease with (acute) exacerbation (principal); J84.10 Pulmonary fibrosis, unspecified; I10 Essential (primary) hypertension; M19.90 Unspecified osteoarthritis, unspecified site; F41.9 Anxiety disorder, unspecified; E07.9 Disorder of thyroid, unspecified; Z79.899 Other long term (current) drug therapy; Z79.890 Hormone replacement therapy; Z79.82 Long term (current) use of aspirin; Z88.5 Allergy status to narcotic agent; Z91.041 Radiographic dye allergy status; Z91.048 Other nonmedicinal substance allergy status; Z88.0 Allergy status to penicillin; Z96.641 Presence of right artificial hip joint; Z86.73 Personal history of transient ischemic attack (TIA), and cerebral infarction without residual deficits
CPT/HCPCS: 36415; 94640; 93005; 83880; 80053; 83605; 84484; 85025; 85610; 85730; 87040; 71046; 99285; 96374; J2930

== ENCOUNTER 2020-07-05 13:44 | Emergency (ER) | payer MEDICARE ==
[2020-07-05 14:00] VITALS: TEMP 98.3
--- NOTE | 2020-07-05 14:31 | ED ---
General Adult HPI - General Chief complaint: Shortness of Breath Stated complaint: Revisit Hx Pneumonia, not feeling well Time Seen by Provider: 07/05/20 14:02 Source: patient Mode of arrival: wheelchair Limitations: no limitations - History of Present Illness Initial comments: Dictation was produced using [employer] dictation software. please excuse any grammatical, word or spelling errors. This patient was cared for during a federal and state declared state of emergency secondary to Covid 19 Chief Complaint: 89-year-old female with past medical history of asthma, COPD, hypertension presents with cough History of Present Illness: Is an 89-year-old female she has been having a cough for the last one half weeks. She was seen here in emergency department 4 days ago for upper respiratory-like infectious symptoms. Patient states that over the last 2-3 weeks she is complete 2 courses of antibiotics and steroids with minimal improvement. She was told that she had some fluid in the left lower lung. Patient states that her cough is improving. Call the primary care physician today told her to come to the emergency department to be evaluated. Patient has no other complaints. No chest pain. Denies any constitutional symptoms. The ROS documented in this emergency department record has been reviewed and confirmed by me. Those systems with pertinent positive or negative responses have been documented in the HPI. All other systems are other negative and/or noncontributory. PHYSICAL EXAM: General Impression: Alert and oriented x3, not in acute distress HEENT: Normocephalic atraumatic, extra-ocular movements intact, pupils equal and reactive to light bilaterally, mucous membranes moist. Cardiovascular: Heart regular rate and rhythm Chest: Able to complete full sentences, no retractions, no tachypnea, crackles to the left lower posterior lung base Abdomen: abdomen soft, non-tender, non-distended, no organomegaly Musculoskeletal: Pulses present and equal in all extremities, no peripheral edema Motor: no focal deficits noted Neurological: CN II-XII grossly intact, no focal motor or sensory deficits noted Skin: Intact with no visualized rashes Psych: Normal affect and mood ED course: 89 y old female presents with cough and shortness of breath. All signs upon arrival are within acceptable limits. CBC is unremarkable. Metabolic panel is negative. Brain natruretic peptide is elevated 1520. Chest x-ray shows no change. Her BNP is elevated however still below the threshold for suspicion of CHF and patient greater than 75 years old. The heart failure is still possible is unlikely. EKG interpretation: Ventricular rate 70, normal sinus rhythm, CA interval 202, QRS 90, QTC 414. No CA prolongation, no QTC prolongation, no ST or T-wave changes noted. EKG compared to July 01 2020 showing no changes. Overall, this EKG is unremarkable Case is discussed with Dr. Dixon patient's primary care physician who is aware of patient being in the emergency department. He request that patient make a disposition decision.. Patient was agreeable for discharge. She is told to follow-up with primary care physician on Tuesday with Dr. Dixon as recommended - Related Data Home Medications Medication Instructions Recorded Confirmed ALPRAZolam [Xanax] 0.25 mg PO BID PRN 08/24/16 07/05/20 Fluticasone/Salmeterol [Advair 1 puff INHALATION RT-BID PRN 08/24/16 07/05/20 250-50 Diskus] Gabapentin 600 mg PO TID 08/24/16 05/23/20 Levothyroxine Sodium [Synthroid] 175 mcg PO DAILY 08/24/16 07/05/20 atenoloL [Tenormin] 25 mg PO DAILY 08/24/16 07/05/20 lisinopriL [Zestril] 20 mg PO DAILY 08/24/16 07/05/20 traMADol HCL [Ultram] 100 mg PO TID 08/24/16 07/05/20 Cholecalciferol [Vitamin D3] 1,000 unit PO DAILY 03/08/18 07/05/20 Aspirin EC [Ecotrin Low Dose] 81 mg PO DAILY 11/07/18 07/05/20 Sucralfate [Carafate] 1 gm PO ACHS 02/08/19 07/05/20 Albuterol Inhaler [Ventolin Hfa 2 puff INHALATION RT-QID PRN 07/05/20 07/05/20 Inhaler] Azithromycin [Zithromax Z-pack] See Taper PO DIRECTED 07/05/20 07/05/20 Previous Rx's Medication Instructions Recorded predniSONE 50 mg PO DAILY #5 tab 07/01/20 Allergies Allergy/AdvReac Type Severity Reaction Status Date / Time codeine Allergy Nausea & Verified 07/05/20 15:36 Vomiting, hallucination Iodinated Contrast Media Allergy Rash/Hives Verified 07/05/20 15:36 iodine Allergy Rash/Hives/throat Verified 07/05/20 15:36 closed up Penicillins Allergy Rash/Hives Verified 07/05/20 15:36 Review of Systems ROS Statement: Those systems with pertinent positive or pertinent negative responses have been documented in the HPI. ROS Other: All systems not noted in ROS Statement are negative. 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", abdominal pain, urinary leakage, History of Any Multi-Drug Resistant Organisms: None Reported Past Surgical History: Cholecystectomy, Heart Catheterization, Hysterectomy, Orthopedic Surgery, Tonsillectomy Additional Past Surgical History / Comment(s): thyroidectomy, rt knee replacement, dalila cataracts, Left knee arthroscopy Past Anesthesia/Blood Transfusion Reactions: Motion Sickness Past Psychological History: Anxiety Smoking Status: Never smoker Past Alcohol Use History: None Reported Past Drug Use History: None Reported - Past Family History Sister(s) Family Medical History: Cancer Mother Family Medical History: Cancer Brother(s) Family Medical History: Cancer General Exam Limitations: no limitations Course Vital Signs 07/05/20 13:53 Temperature 98.3 F Pulse Rate 79 Respiratory 20 Rate Blood Pressure 153/77 O2 Sat by Pulse 97 Oximetry Medical Decision Making - Lab Data Result diagrams: 07/05/20 14:33 07/05/20 14:33 Lab Results 07/05/20 07/05/20 07/05/20 Range/Units 14:33 14:33 14:33 WBC 7.0 (3.8-10.6) k/uL RBC 4.11 (3.80-5.40) m/uL Hgb 13.1 (11.4-16.0) gm/dL Hct 37.6 (34.0-46.0) % MCV 91.5 (80.0-100.0) fL MCH 31.9 (25.0-35.0) pg MCHC 34.9 (31.0-37.0) g/dL RDW 12.5 (11.5-15.5) % Plt Count 144 L (150-450) k/uL MPV 7.0 Neutrophils % 77 % Lymphocytes % 18 % Monocytes % 3 % Eosinophils % 1 % Basophils % 0 % Neutrophils # 5.4 (1.3-7.7) k/uL Lymphocytes # 1.2 (1.0-4.8) k/uL Monocytes # 0.2 (0-1.0) k/uL Eosinophils # 0.1 (0-0.7) k/uL Basophils # 0.0 (0-0.2) k/uL Sodium 137 (137-145) mmol/L Potassium 4.2 (3.5-5.1) mmol/L Chloride 103 (98-107) mmol/L Carbon Dioxide 23 (22-30) mmol/L Anion Gap 11 mmol/L BUN 21 H (7-17) mg/dL Creatinine 0.75 (0.52-1.04) mg/dL Est GFR (CKD-EPI)AfAm 82 (>60 ml/min/1.73 sqM) Est GFR (CKD-EPI)NonAf 72 (>60 ml/min/1.73 sqM) Glucose 178 H (74-99) mg/dL Calcium 9.4 (8.4-10.2) mg/dL Magnesium 1.6 (1.6-2.3) mg/dL Total Bilirubin 0.6 (0.2-1.3) mg/dL AST 31 (14-36) U/L ALT 30 (4-34) U/L Alkaline Phosphatase 55 (38-126) U/L Troponin I <0.012 (0.000-0.034) ng/mL NT-Pro-B Natriuret Pep pg/mL Total Protein 7.4 (6.3-8.2) g/dL Albumin 4.4 (3.5-5.0) g/dL 07/05/20 Range/Units 14:33 WBC (3.8-10.6) k/uL RBC (3.80-5.40) m/uL Hgb (11.4-16.0) gm/dL Hct (34.0-46.0) % MCV (80.0-100.0) fL MCH (25.0-35.0) pg MCHC (31.0-37.0) g/dL RDW (11.5-15.5) % Plt Count (150-450) k/uL MPV Neutrophils % % Lymphocytes % % Monocytes % % Eosinophils % % Basophils % % Neutrophils # (1.3-7.7) k/uL Lymphocytes # (1.0-4.8) k/uL Monocytes # (0-1.0) k/uL Eosinophils # (0-0.7) k/uL Basophils # (0-0.2) k/uL Sodium (137-145) mmol/L Potassium (3.5-5.1) mmol/L Chloride (98-107) mmol/L Carbon Dioxide (22-30) mmol/L Anion Gap mmol/L BUN (7-17) mg/dL Creatinine (0.52-1.04) mg/dL Est GFR (CKD-EPI)AfAm (>60 ml/min/1.73 sqM) Est GFR (CKD-EPI)NonAf (>60 ml/min/1.73 sqM) Glucose (74-99) mg/dL Calcium (8.4-10.2) mg/dL Magnesium (1.6-2.3) mg/dL Total Bilirubin (0.2-1.3) mg/dL AST (14-36) U/L ALT (4-34) U/L Alkaline Phosphatase (38-126) U/L Troponin I (0.000-0.034) ng/mL NT-Pro-B Natriuret Pep 1520 pg/mL Total Protein (6.3-8.2) g/dL Albumin (3.5-5.0) g/dL Disposition Clinical Impression: Cough Disposition: HOME SELF-CARE Condition: Good Instructions (If sedation given, give patient instructions): Chronic Cough (ED) Is patient prescribed a controlled substance at d/c from ED?: No Referrals: Bri Dixon MD [Primary Care Provider] - 1-2 days Time of Disposition: 15:44
[2020-07-05 14:41] LABS: Basophils % (A) 0 %; Eosinophils # (A) 0.1 k/uL (0-0.7); Eosinophils % (A) 1 %; HCT 37.6 % (34.0-46.0); HGB 13.1 gm/dL (11.4-16.0); Lymphocytes # (A) 1.2 k/uL (1.0-4.8); Lymphocytes % (A) 18 %; MCH 31.9 pg (25.0-35.0); MCHC 34.9 g/dL (31.0-37.0); MCV 91.5 fL (80.0-100.0); Monocytes # (A) 0.2 k/uL (0-1.0); Monocytes % (A) 3 %; Neutrophils # (A) 5.4 k/uL (1.3-7.7); Neutrophils % (A) 77 %; Platelet Count 144 k/uL (150-450); RBC 4.11 m/uL (3.80-5.40); RDW 12.5 % (11.5-15.5)
[2020-07-05 14:52] LABS: Albumin 4.4 g/dL (3.5-5.0); Calcium 9.4 mg/dL (8.4-10.2); Magnesium 1.6 mg/dL (1.6-2.3); Potassium 4.2 mmol/L (3.5-5.1); Total Bilirubin 0.6 mg/dL (0.2-1.3); Total Protein 7.4 g/dL (6.3-8.2)
--- NOTE | 2020-07-05 15:02 | XR ---
EXAMINATION TYPE: XR chest 2V DATE OF EXAM: 07/05/2020 COMPARISON: 07/01/2020 HISTORY: Pneumonia cough. TECHNIQUE: FINDINGS: There is mild coarsening of interstitial markings. There is no heart failure. There is some infiltrate lateral left lung base. There are chest leads. Thoracic aorta is atheromatous. The bony t horax is intact. IMPRESSION: Pulmonary fibrotic changes. No definite acute lung disease. No change compared to recent exam.
[2020-07-05 16:03] VITALS: BP 151/69; PULSE 75; RESP 18
== END 2020-07-05 16:24 | disposition home or self-care (01) ==
LOC: EC 13:44
DX: R05 Cough (principal); J44.9 Chronic obstructive pulmonary disease, unspecified; I10 Essential (primary) hypertension; M19.90 Unspecified osteoarthritis, unspecified site; E07.9 Disorder of thyroid, unspecified; F41.9 Anxiety disorder, unspecified; Z79.82 Long term (current) use of aspirin; Z79.890 Hormone replacement therapy; Z79.899 Other long term (current) drug therapy; Z90.49 Acquired absence of other specified parts of digestive tract; Z95.5 Presence of coronary angioplasty implant and graft; Z90.710 Acquired absence of both cervix and uterus; Z98.42 Cataract extraction status, left eye; Z98.41 Cataract extraction status, right eye; Z96.651 Presence of right artificial knee joint; Z88.0 Allergy status to penicillin; Z88.5 Allergy status to narcotic agent; Z91.041 Radiographic dye allergy status
CPT/HCPCS: 36415; 71046; 80053; 83735; 83880; 84484; 85025; 93005; 99285

== ENCOUNTER 2020-10-27 15:14 | Emergency (ER) | payer MEDICARE ==
[2020-10-27 15:19] VITALS: BP 135/77; PULSE 72; RESP 20; TEMP 97.8
[2020-10-27] MEDS ORDERED: MORPHINE SULFATE 4 MG/ML SYRINGE IV STA (15:43)
--- NOTE | 2020-10-27 15:44 | ED ---
General Adult HPI - General Chief complaint: Abdominal Pain Stated complaint: abd pain Time Seen by Provider: 10/27/20 15:21 Source: patient Mode of arrival: wheelchair Limitations: no limitations - History of Present Illness Initial comments: Dictation was produced using [employer] dictation software. please excuse any grammatical, word or spelling errors. Chief Complaint: 89-year-old female presents with abdominal pain and chest pain History of Present Illness: And 89-year-old female she has multiple comorbidities. She has COPD and wears home oxygen. Patient has been having exacerbation of hiatal hernia symptoms the last several days. She has been eating a lot less however able to tolerate some small amounts of fluid. She s tates that she is having an achy pain to her upper epigastric area and lower chest. She denies any shortness of breath. States that this pain does not radiate. States that she has been evaluated for hiatal hernia and is currently being managed by Dr. Sethi the GI doctor. She 2 days ago had her Protonix medication increased to 40 mg twice a day. She reports that she's been evaluated for surgical treatment however she is not a candidate because of her age and comorbidities. She presents today with 2 daughters who assist in providing history of present illness. The ROS documented in this emergency department record has been reviewed and confirmed by me. Those systems with pertinent positive or negative responses have been documented in the HPI. All other systems are other negative and/or noncontributory. PHYSICAL EXAM: General Impression: Alert and oriented x3, not in acute distress HEENT: Normocephalic atraumatic, extra-ocular movements intact, pupils equal and reactive to light bilaterally, mucous membranes moist. Cardiovascular: Heart regular rate and rhythm Chest: Able to complete full sentences, no retractions, no tachypnea Abdomen: abdomen soft, non-tender, non-distended, no organomegaly Musculoskeletal: Pulses present and equal in all extremities, no peripheral ed sampson Motor: no focal deficits noted Neurological: CN II-XII grossly intact, no focal motor or sensory deficits noted Skin: Intact with no visualized rashes Psych: Normal affect and mood ED course: 89-year-old female multiple comorbidities presents to the emergency department for concerns of hiatal hernia symptom exacerbation. All signs upon arrival are within acceptable limits. Patient wears home oxygen. She is not hypoxic. Symptoms are very atypical for ACS or pulmonary embolism or any life- threatening or pulmonary process. EKG interpretation: Ventricular rate 66, sinus rhythm, PA interval 232, QRS 88, QTC 404. No PA prolongation, no QTC prolongation, no ST or T-wave changes noted. EKG compared to 07/05/2020 one showing no changes. Overall, this EKG is unremarkable Laboratory evaluation obtained. CBC, metabolic panels within acceptable limits. Chest x-ray shows no acute processes. There is may be a mild infiltrate in the retrocardiac region. There is also some mild cardiomegaly. Patient does not have any respiratory symptoms at this time. Is not hypoxic or tachypneic or showing any signs of respiratory distress. No concerns for bacterial infection at this time. Patient reevaluated bedside at 5:45 PM after being given analgesics and GI cocktail. She feels much better. Patient's symptoms likely secondary to her hiatal hernia. She does have a doctor that is working with her to treat this. Patient requested medications for antiemetics. She starts advised follow-up with her GI doctor. - Related Data Home Medications Medication Instructions Recorded Confirmed ALPRAZolam [Xanax] 0.25 mg PO BID PRN 08/24/16 07/05/20 Fluticasone/Salmeterol [Advair 1 puff INHALATION RT-BID PRN 08/24/16 07/05/20 250-50 Diskus] Levothyroxine Sodium [Synthroid] 175 mcg PO DAILY 08/24/16 07/05/20 atenoloL [Tenormin] 25 mg PO DAILY 08/24/16 07/05/20 lisinopriL [Zestril] 20 mg PO DAILY 08/24/16 07/05/20 traMADol HCL [Ultram] 100 mg PO TID 08/24/16 07/05/20 Cholecalciferol [Vitamin D3] 1,000 unit PO DAILY 03/08/18 07/05/20 Aspirin EC [Ecotrin Low Dose] 81 mg PO DAILY 11/07/18 07/05/20 Sucralfate [Carafate] 1 gm PO ACHS 02/08/19 07/05/20 Albuterol Inhaler [Ventolin Hfa 2 puff INHALATION RT-QID PRN 07/05/20 07/05/20 Inhaler] Azithromycin [Zithromax Z-pack] See Taper PO DIRECTED 07/05/20 07/05/20 Gabapentin (Unknown Strength) 1 cap PO DAILY 07/05/20 07/05/20 Previous Rx's Medication Instructions Recorded RX: predniSONE 50 mg PO DAILY #5 tab 07/01/20 Allergies Allergy/AdvReac Type Severity Reaction Status Date / Time codeine Allergy Nausea & Verified 10/27/20 15:16 Vomiting, hallucination Iodinated Contrast Media Allergy Rash/Hives Verified 10/27/20 15:16 iodine Allergy Rash/Hives/throat Verified 10/27/20 15:16 closed up Penicillins Allergy Rash/Hives Verified 10/27/20 15:16 Review of Systems ROS Statement: Those systems with pertinent positive or pertinent negative responses have been documented in the HPI. ROS Other: All systems not noted in ROS Statement are negative. 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", abdominal pain, urinary leakage, hiatal hernia History of Any Multi-Drug Resistant Organisms: None Reported Past Surgical History: Cholecystectomy, Heart Catheterization, Hysterectomy, Orthopedic Surgery, Tonsillectomy Additional Past Surgical History / Comment(s): thyroidectomy, rt knee replacement, dalila cataracts, Left knee arthroscopy Past Anesthesia/Blood Transfusion Reactions: Motion Sickness Past Psychological History: Anxiety Smoking Status: Former smoker Past Alcohol Use History: None Reported Past Drug Use History: None Reported - Past Family History Sister(s) Family Medical History: Cancer Mother Family Medical History: Cancer Brother(s) Family Medical History: Cancer General Exam Limitations: no limitations Course Vital Signs 10/27/20 15:16 Temperature 97.8 F Pulse Rate 72 Respiratory 20 Rate Blood Pressure 135/77 O2 Sat by Pulse 96 Oximetry Medical Decision Making - Lab Data Result diagrams: 10/27/20 15:47 10/27/20 15:47 Lab Results 10/27/20 10/27/20 10/27/20 Range/Units 15:47 15:47 15:47 WBC 8.7 (3.8-10.6) k/uL RBC 4.56 (3.80-5.40) m/uL Hgb 13.8 (11.4-16.0) gm/dL Hct 39.6 (34.0-46.0) % MCV 86.7 (80.0-100.0) fL MCH 30.3 (25.0-35.0) pg MCHC 35.0 (31.0-37.0) g/dL RDW 14.3 (11.5-15.5) % Plt Count 147 L (150-450) k/uL MPV 6.7 Neutrophils % 77 % Lymphocytes % 14 % Monocytes % 5 % Eosinophils % 2 % Basophils % 1 % Neutrophils # 6.7 (1.3-7.7) k/uL Lymphocytes # 1.2 (1.0-4.8) k/uL Monocytes # 0.4 (0-1.0) k/uL Eosinophils # 0.2 (0-0.7) k/uL Basophils # 0.1 (0-0.2) k/uL Sodium 136 L (137-145) mmol/L Potassium 4.2 (3.5-5.1) mmol/L Chloride 98 (98-107) mmol/L Carbon Dioxide 28 (22-30) mmol/L Anion Gap 10 mmol/L BUN 23 H (7-17) mg/dL Creatinine 0.81 (0.52-1.04) mg/dL Est GFR (CKD-EPI)AfAm 76 (>60 ml/min/1.73 sqM) Est GFR (CKD-EPI)NonAf 66 (>60 ml/min/1.73 sqM) Glucose 122 H (74-99) mg/dL Calcium 9.8 (8.4-10.2) mg/dL Troponin I <0.012 (0.000-0.034) ng/mL Disposition Clinical Impression: Hiatal hernia Disposition: HOME SELF-CARE Condition: Fair Instructions (If sedation given, give patient instructions): Hiatal Hernia (ED) Is patient prescribed a controlled substance at d/c from ED?: No Referrals: Marleny Sethi MD [STAFF PHYSICIAN] - 1-2 days Time of Disposition: 17:50
[2020-10-27 16:10] LABS: Basophils # (A) 0.1 k/uL (0-0.2); Basophils % (A) 1 %; Eosinophils # (A) 0.2 k/uL (0-0.7); Eosinophils % (A) 2 %; HCT 39.6 % (34.0-46.0); HGB 13.8 gm/dL (11.4-16.0); Lymphocytes # (A) 1.2 k/uL (1.0-4.8); Lymphocytes % (A) 14 %; MCH 30.3 pg (25.0-35.0); MCV 86.7 fL (80.0-100.0); Mean Platelet Volume 6.7; Monocytes # (A) 0.4 k/uL (0-1.0); Monocytes % (A) 5 %; Neutrophils # (A) 6.7 k/uL (1.3-7.7); Neutrophils % (A) 77 %; Platelet Count 147 k/uL (150-450); RBC 4.56 m/uL (3.80-5.40); RDW 14.3 % (11.5-15.5); WBC 8.7 k/uL (3.8-10.6)
[2020-10-27] MEDS ORDERED: MAG HYDROX/AL HYDROX/SIMETH 30 ML, HYOSCYAMINE ELIXIR 10 ML, LIDOCAINE VISCOUS 2% 10 ML PO STA ×3 (16:12)
[2020-10-27 16:44] LABS: Calcium 9.8 mg/dL (8.4-10.2); Potassium 4.2 mmol/L (3.5-5.1)
--- NOTE | 2020-10-27 17:34 | XR ---
EXAMINATION TYPE: XR chest 2V DATE OF EXAM: 10/27/2020 COMPARISON: 07/05/2020 INDICATION: Chest pain TECHNIQUE: Frontal and lateral views of the chest are obtained. FINDINGS: The heart size is prominent. The pulmonary vasculature is normal. Mild retrocardiac infiltrate may be present. Correlate for pneumonia or atelectasis. IMPRESSION: 1. There may be a mild infiltrate in the retrocardiac region. 2. Mild cardiomegaly
[2020-10-27] MEDS ORDERED: ONDANSETRON 4 MG ODT STARTER PACK 2 TAB BTL PO STA (17:49)
--- NOTE | 2020-10-27 17:51 | ED ---
Medical Decision Making - Lab Data Result diagrams: 10/27/20 15:47 10/27/20 15:47 Lab Results 10/27/20 10/27/20 10/27/20 Range/Units 15:47 15:47 15:47 WBC 8.7 (3.8-10.6) k/uL RBC 4.56 (3.80-5.40) m/uL Hgb 13.8 (11.4-16.0) gm/dL Hct 39.6 (34.0-46.0) % MCV 86.7 (80.0-100.0) fL MCH 30.3 (25.0-35.0) pg MCHC 35.0 (31.0-37.0) g/dL RDW 14.3 (11.5-15.5) % Plt Count 147 L (150-450) k/uL MPV 6.7 Neutrophils % 77 % Lymphocytes % 14 % Monocytes % 5 % Eosinophils % 2 % Basophils % 1 % Neutrophils # 6.7 (1.3-7.7) k/uL Lymphocytes # 1.2 (1.0-4.8) k/uL Monocytes # 0.4 (0-1.0) k/uL Eosinophils # 0.2 (0-0.7) k/uL Basophils # 0.1 (0-0.2) k/uL Sodium 136 L (137-145) mmol/L Potassium 4.2 (3.5-5.1) mmol/L Chloride 98 (98-107) mmol/L Carbon Dioxide 28 (22-30) mmol/L Anion Gap 10 mmol/L BUN 23 H (7-17) mg/dL Creatinine 0.81 (0.52-1.04) mg/dL Est GFR (CKD-EPI)AfAm 76 (>60 ml/min/1.73 sqM) Est GFR (CKD-EPI)NonAf 66 (>60 ml/min/1.73 sqM) Glucose 122 H (74-99) mg/dL Calcium 9.8 (8.4-10.2) mg/dL Troponin I <0.012 (0.000-0.034) ng/mL Disposition Clinical Impression: Hiatal hernia Disposition: HOME SELF-CARE Condition: Fair Instructions (If sedation given, give patient instructions): Hiatal Hernia (ED) Prescriptions: Ondansetron Odt [Zofran Odt] 4 mg PO Q8HR PRN #12 tab PRN Reason: Nausea Is patient prescribed a controlled substance at d/c from ED?: No Referrals: Marleny Sethi MD [STAFF PHYSICIAN] - 1-2 days
== END 2020-10-27 18:14 | disposition home or self-care (01) ==
LOC: EC 15:14
DX: K44.9 Diaphragmatic hernia without obstruction or gangrene (principal); I10 Essential (primary) hypertension; J44.9 Chronic obstructive pulmonary disease, unspecified; E11.36 Type 2 diabetes mellitus with diabetic cataract; M19.90 Unspecified osteoarthritis, unspecified site; F41.9 Anxiety disorder, unspecified; Z86.73 Personal history of transient ischemic attack (TIA), and cerebral infarction without residual deficits; Z87.891 Personal history of nicotine dependence; Z79.51 Long term (current) use of inhaled steroids; Z79.52 Long term (current) use of systemic steroids; Z79.82 Long term (current) use of aspirin; Z88.0 Allergy status to penicillin
CPT/HCPCS: 36415; 93005; 80048; 84484; 85025; 71046; 99285; 96374; J2270; S0119

== ENCOUNTER → 2020-10-30 | Outpatient (CLI) | payer MEDICARE ==
--- NOTE | 2020-10-30 13:16 | CT ---
EXAMINATION TYPE: CT abdomen wo con DATE OF EXAM: 10/30/2020 COMPARISON: None HISTORY: Epigastric pain. CT DLP: 451.1 mGycm Automated exposure control for dose reduction was used. TECHNIQUE: Helical acquisition of images was performed from the lung bases through the top of iliac crest to include entire abdomen. CONTRAST: Performed without Oral Contrast and without IV contrast. FINDINGS: LUNG BASES: Coarsened interstitial markings with subsegmental areas of consolidation most typical of atelectasis. Correlate for pulmonary fibrosis. Heart size is enlarged. Atherosclerotic change of the aorta. LIVER/GB: Postcholecystectomy changes are seen. There subcentimeter hypodensity within the right lobe of the liver too small to characterize by noncontrast technique. PANCREAS: No significant abnormality is seen. SPLEEN: No significant abnormality is seen. ADRENALS: Thickening of the adrenal glands bilaterally. KIDNEYS: No hydronephrosis or nephrolithiasis. Subcentimeter fatty lesion of the left kidney may repr esent a small lipoma or angiomyolipoma. Hyperdense lower pole left renal lesion most likely in the ba sis of a hemorrhagic. Hypodense lesion lower pole anteriorly right kidney indeterminate. BOWEL: Bowel gas pattern nonspecific as visualized. Stomach is decompressed limiting assessment for wall thickening. There is a small hiatal hernia. Occasional diverticula seen in the colon. LYMPH NODES: No significant abnormality is appreciated. OSSEOUS STRUCTURES: Hypertrophic and degenerative changes of the spine. OTHER: Abdominal aorta of normal caliber with atherosclerotic changes. IMPRESSION: 1. No definite acute process. Postcholecystectomy changes are seen and there are too small to charact erize hepatic lesions by noncontrast technique. 2. Bilateral adrenal gland thickening can be associated with adrenal hyperplasia. 3. Correlate for chronic pulmonary fibrosis. 4. Hyperdense lower pole left renal lesion could represent hemorrhagic cyst measuring 5 mm too small to characterize. Additionally, there are hypodense lesion involving the right kidney which is too sma ll to characterize and indeterminate. Fatty lesion involving the left kidney subcentimeter in size mo st typical of lipoma or angiomyolipoma.
== END | disposition home or self-care (01) ==
LOC: RADCTMAIN 11:56
PROVIDERS: ATTEND Internal Medicine Gastroenterology
DX: N28.89 Other specified disorders of kidney and ureter (principal); Z90.49 Acquired absence of other specified parts of digestive tract
CPT/HCPCS: 74150

== ENCOUNTER → 2020-11-21 | Outpatient (CLI) | payer MEDICARE ==
[2020-11-21 11:25] VITALS: TEMP 98.3
[2020-11-21 11:29] LABS: HCT 36.3 % (34.0-46.0); HGB 12.2 gm/dL (11.4-16.0); MCH 30.3 pg (25.0-35.0); MCHC 33.6 g/dL (31.0-37.0); MCV 90.4 fL (80.0-100.0); Mean Platelet Volume 7.5; Platelet Count 188 k/uL (150-450); RBC 4.02 m/uL (3.80-5.40); RDW 15.8 % (11.5-15.5); WBC 6.9 k/uL (3.8-10.6)
[2020-11-21 12:23] VITALS: BP 106/71; PULSE 58; RESP 18
== END ==
LOC: PROCWHC3 11:03
PROVIDERS: ATTEND Internal Medicine Gastroenterology
DX: E83.110 Hereditary hemochromatosis (principal); Z88.5 Allergy status to narcotic agent; Z91.041 Radiographic dye allergy status; Z88.0 Allergy status to penicillin; Z87.891 Personal history of nicotine dependence
CPT/HCPCS: 36415; 85027; 99195

== ENCOUNTER → 2021-01-06 | Outpatient (CLI) | payer MEDICARE ==
--- NOTE | 2021-01-06 13:02 | CT ---
EXAMINATION TYPE: CT chest wo con DATE OF EXAM: 01/06/2021 COMPARISON: None HISTORY: SOB CT DLP: [address] of the chest was performed with lung and mediastinal window settings submitted. The la ck of contrast limits evaluation of the vascular, mediastinal and parenchymal structures including th e upper abdomen. LUNGS: There are subpleural fibrosis noted at the lung bases extending to the lung apices greatest at the left lung base. Findings are compatible with radiographic pulmonary fibrosis. Mild lower lobe br onchiectasis. No focal consolidation or mass. MEDIASTINUM/LISANDRA: Thoracic aorta is of normal caliber with limited evaluation given lack of contrast . The heart is enlarged. No evidence for mediastinal mass. No lymph nodes greater than 1cm. UPPER ABDOMEN: No significant abnormality is seen. OTHER: No significant other abnormality. IMPRESSION: 1. Mild changes of a hepatic pulmonary fibrosis.
== END | disposition home or self-care (01) ==
LOC: RADCTMAIN 12:31
PROVIDERS: ATTEND Internal Medicine Critical Care Medicine
DX: J84.10 Pulmonary fibrosis, unspecified (principal)
CPT/HCPCS: 71250

== ENCOUNTER → 2021-03-09 | Outpatient (CLI) | payer MEDICARE ==
--- NOTE | 2021-03-09 17:50 | XR ---
EXAMINATION TYPE: XR chest 2V DATE OF EXAM: 03/09/2021 COMPARISON: 10/27/2020 HISTORY: Cough TECHNIQUE: 2 views FINDINGS: There is some coarse interstitial density in the lower lung monson. There are no hilar mass es. Thoracic aorta is atheromatous. There is some pleural thickening at the lung apices. IMPRESSION: There is some pulmonary interstitial infiltrates that are the same or slightly increased compared to old exam. This could be pulmonary fibrosis. No definite heart failure.
== END | disposition home or self-care (01) ==
LOC: RADXRMAIN 17:19
PROVIDERS: ATTEND Internal Medicine
DX: R91.8 Other nonspecific abnormal finding of lung field (principal)
CPT/HCPCS: 71046

== ENCOUNTER → 2021-05-29 | Outpatient (CLI) | payer MEDICARE ==
[2021-05-29 11:18] VITALS: BP 138/72; PULSE 73; RESP 16; TEMP 98
[2021-05-29 11:31] LABS: HCT 39.6 % (34.0-46.0); HGB 12.7 gm/dL (11.4-16.0); MCH 30.3 pg (25.0-35.0); MCV 94.9 fL (80.0-100.0); Mean Platelet Volume 6.9; Platelet Count 209 k/uL (150-450); RBC 4.18 m/uL (3.80-5.40); WBC 13.6 k/uL (3.8-10.6)
== END | disposition home or self-care (01) ==
LOC: PROCWHC3 11:00 → EDSTATUS 11:00
PROVIDERS: ATTEND Internal Medicine Gastroenterology
DX: E83.110 Hereditary hemochromatosis (principal)
CPT/HCPCS: 36415; 85027; 99195